=== PATIENT | male | born 1955 | race Caucasian/White ===

== ENCOUNTER 2016-11-29 15:11 | Inpatient (IN) | payer BC, OTHER ==
[~2016-11-29] VITALS: Ht 193 cm; Wt 73.7 kg
[2016-11-29] VITALS (401 sets, daily range): BP systolic 135–149; BP diastolic 62–68; PULSE 90–95; TEMP 97.5–97.9; O2SAT 48–100
[~2016-11-29 15:11] MED LIST: ALTACE 5MG5 MG PO; AMOXICILLIN875 MG PO; APIDRA SOLOS100 U/ML SC; ASPIRIN 81M81 MG/TA2 PO; ASPIRIN E.C. 8181 MG PO; AVELOX 400MG T400 MG PO; CLEOCIN HC150 MG/CAP PO; COREG 6.256.25 MG/TA PO; COREG6.25 MG PO; HUMALOG PEN100 U/ML SC; LANTUS SOLOS100 U/ML SC; LEVEMIR FLEXPEN; LEVEMIR100 U/ML SQ; NOVOLOG 100U100 U/M1 SQ; PROMETHAZINE V473 M2 PO; RAMIPRIL5 MG PO; SIMVASTATIN40 MG PO; ULTRAM 50MG TAB50 MG PO; ZOCOR 40MG40 MG PO; ZOFRAN 4MG T4 MG/TAB PO
[2016-11-29 15:56] LABS: HEMATOCRIT 43.8 % (42.0-52.0); HEMOGLOBIN 14.1 g/dl (13.5-18.0); MEAN CELL VOLUME 104 fl (80.0-100.0); MEAN CORPUSCULAR HEMOGLOBIN 34 pg (27.0-31.0); MEAN CORPUSCULAR HGB CONC 32 g/dl (33.0-37.0); MEAN PLATELET VOLUME 10.8 fl (7.4-10.4); PLATELET COUNT 319 K/mm3 (130-400); REDCELL DISTRIBUTION WIDTH-CV 12.6 % (11.5-14.5)
[2016-11-29 15:58] LABS: ADD PATHOLOGY DIFF REVIEW NO; WHITE BLOOD COUNT 28.5 K/mm3 (4.8-10.8)
[2016-11-29 16:04] LABS: ADJUSTED CALCIUM 8.8 mg/dL (8.4-10.2); ALBUMIN 4.3 gm/dL (3.5-5.0); BILIRUBIN,TOTAL 1.1 mg/dL (0.0-1.0); CREATININE, serum 2.12 mg/dL (0.66-1.25); POTASSIUM 5.4 mmol/L (3.4-5.0); TOTAL PROTEIN 7.5 gm/dL (6.4-8.2)
[2016-11-29] MEDS ORDERED: COREG 6.256.25 MG/TA PO (16:06)
[2016-11-29 16:22] LABS: ARTERIAL BLD GAS O2 SATURATION 97.4 % (92-100); ARTERIAL BLD GAS TCO2 CT 7.2; ARTERIAL BLOOD GAS HCO3 6.7 meq/L (22-26); OXYHEMOGLOBIN 96.2 %
[2016-11-29 16:23] LABS: ALLEN TEST YES; ALLENS TEST RESULT PASS; ATS? YES
[2016-11-29 16:30] LABS: MAGNESIUM 2.9 mg/dL (1.6-2.3); PHOSPHOROUS 8.7 mg/dL (2.5-4.5)
[2016-11-29 16:53] LABS: BAND 8 % (0-10); METAMYELOCYTE 2 % (0-0); MYELOCYTE 1 % (0-0); NEUTROPHILS 74 % (42.0-75.2); PLATELET ESTIMATE NORMAL (NORMAL)
[2016-11-29 16:56] LABS: ANISOCYTOSIS 1+; POLYCHROMASIA 1+; TOXIC GRANULATION PRESENT
[2016-11-29 16:57] LABS: TOTAL CELLS COUNTED 100
[2016-11-29 18:59] LABS: ANION GAP 28 mmol/L (7-16); BLOOD UREA NITROGEN 57 mg/dL (9-20); CALCIUM 8.5 mg/dL (8.4-10.2); CHLORIDE 91 mmol/L (98-107); CREATININE, serum 1.67 mg/dL (0.66-1.25); POTASSIUM 4.8 mmol/L (3.4-5.0); SODIUM 130 mmol/L (137-145)
[2016-11-29 19:13] LABS: CARBON DIOXIDE 11 mmol/L (22-30); GLUCOSE > 625 mg/dL (74-106)
[2016-11-29 19:14] LABS: TROPONIN-I 0.058 ng/mL (0.000-0.034)
[2016-11-29 20:42] LABS: PH 5 (5-8); SQUAMOUS EPITHELIAL 0-2 /hpf; URINE APPEARANCE Clear; URINE BACTERIA Rare /hpf; URINE BILIRUBIN Negative (NEGATIVE); URINE BLOOD 1+ (NEGATIVE); URINE COLOR Straw; URINE GLUCOSE 3+ (NEGATIVE); URINE KETONE 2+ (NEGATIVE); URINE RBC 0-2 /hpf; URINE UROBILINOGEN Negative (NEGATIVE); URINE WBC 0-2 /hpf
[2016-11-29 20:44] LABS: AMPHETAMINE URINE NEGATIVE; BARBITURATES URINE NEGATIVE; BENZODIAZEPINES URINE NEGATIVE; BUPRENORPHINE URINE NEGATIVE; METHADONE URINE NEGATIVE; OPIATES URINE NEGATIVE; OXYCODONE URINE NEGATIVE; PHENCYCLIDINE URINE NEGATIVE; PROPOXYPHENE URINE NEGATIVE; THC CANNABINOIDS URINE NEGATIVE
[2016-11-29 21:33] LABS: CALCIUM 7.8 mg/dL (8.4-10.2); CREATININE, serum 1.21 mg/dL (0.66-1.25); POTASSIUM 4.9 mmol/L (3.4-5.0)
[2016-11-30] VITALS (780 sets, daily range): BP systolic 114–139; BP diastolic 61–75; PULSE 70–87; TEMP 97.7–99.8; O2SAT 79–100
[2016-11-30 00:14] LABS: CALCIUM 7.8 mg/dL (8.4-10.2); CREATININE, serum 1.01 mg/dL (0.66-1.25)
[2016-11-30 05:47] LABS: BASO % 0.1 % (0.0-2.0); GRAN % 80.8 % (42.2-75.2); HEMOGLOBIN 12.3 g/dl (13.5-18.0); LYMPH # 2.1 (1.2-3.4); MEAN CORPUSCULAR HEMOGLOBIN 33 pg (27.0-31.0); MEAN CORPUSCULAR HGB CONC 35 g/dl (33.0-37.0); MEAN PLATELET VOLUME 10.2 fl (7.4-10.4); MONO # 1.7 (0.1-0.6); MONO % 8.3 % (1.7-9.3); PLATELET COUNT 272 K/mm3 (130-400); REDCELL DISTRIBUTION WIDTH-CV 11.9 % (11.5-14.5)
[2016-11-30 05:50] LABS: HEMATOCRIT 35.1 % (42.0-52.0); MEAN CELL VOLUME 95 fl (80.0-100.0)
[2016-11-30 05:57] LABS: CREATININE, serum 0.79 mg/dL (0.66-1.25); POTASSIUM 3.7 mmol/L (3.4-5.0)
[2016-11-30 10:12] LABS: CALCIUM 8.3 mg/dL (8.4-10.2); CREATININE, serum 0.74 mg/dL (0.66-1.25); POTASSIUM 3.9 mmol/L (3.4-5.0)
[2016-11-30 13:46] LABS: CALCIUM 8.5 mg/dL (8.4-10.2); CREATININE, serum 0.76 mg/dL (0.66-1.25); POTASSIUM 3.9 mmol/L (3.4-5.0)
[2016-12-01] VITALS (10 sets, daily range): BP systolic 121–152; BP diastolic 50–67; PULSE 62–82; TEMP 97.8–99.1
[2016-12-01 14:31] LABS: BASO % 0.3 % (0.0-2.0); GRAN # 8.6 (1.4-6.5); GRAN % 81.5 % (42.2-75.2); HEMATOCRIT 38.3 % (42.0-52.0); HEMOGLOBIN 13.2 g/dl (13.5-18.0); LYMPH # 0.9 (1.2-3.4); LYMPH % 8.8 % (20.0-51.0); MEAN CELL VOLUME 98 fl (80.0-100.0); MEAN CORPUSCULAR HEMOGLOBIN 34 pg (27.0-31.0); MEAN CORPUSCULAR HGB CONC 35 g/dl (33.0-37.0); MONO # 0.9 (0.1-0.6); PLATELET COUNT 250 K/mm3 (130-400); RED BLOOD COUNT 3.91 M/mm3 (4.20-5.60); REDCELL DISTRIBUTION WIDTH-CV 12.7 % (11.5-14.5); WHITE BLOOD COUNT 10.5 K/mm3 (4.8-10.8)
[2016-12-02 02:37] VITALS: BP 125/62; PULSE 62; TEMP 98.7
[2016-12-02 06:46] LABS: BASO % 0.4 % (0.0-2.0); EOS # 0.1 (0.0-0.7); EOS % 1.1 % (0-4.0); GRAN # 6.2 (1.4-6.5); GRAN % 59.2 % (42.2-75.2); LYMPH # 2.8 (1.2-3.4); LYMPH % 27.1 % (20.0-51.0); MEAN CELL VOLUME 98 fl (80.0-100.0); MEAN CORPUSCULAR HEMOGLOBIN 33 pg (27.0-31.0); MEAN CORPUSCULAR HGB CONC 34 g/dl (33.0-37.0); MEAN PLATELET VOLUME 10.8 fl (7.4-10.4); MONO # 1.2 (0.1-0.6); MONO % 11.7 % (1.7-9.3); PLATELET COUNT 238 K/mm3 (130-400); RED BLOOD COUNT 3.89 M/mm3 (4.20-5.60); REDCELL DISTRIBUTION WIDTH-CV 12.6 % (11.5-14.5); WHITE BLOOD COUNT 10.5 K/mm3 (4.8-10.8)
[2016-12-02 07:01] LABS: CALCIUM 8.5 mg/dL (8.4-10.2); CREATININE, serum 0.62 mg/dL (0.66-1.25); POTASSIUM 3.5 mmol/L (3.4-5.0)
[2016-12-02 07:35] VITALS: BP 131/56; PULSE 68; TEMP 98
[2016-12-02] MEDS ORDERED: LEVEMIR FLEX100 U/ML SQ (10:00)
[2016-12-02] MEDS ORDERED: CLEOCIN HC150 MG/CAP PO (12:00)
== END 2016-12-02 12:02 | disposition home or self-care (01) | DRG 637 ==
LOC: COL.ER 15:11 → ICU 16:20 → MEDICAL 16:20
PROVIDERS: Family Medicine; Internal Medicine; Nurse Practitioner Family
DX: E10.10 Type 1 diabetes mellitus with ketoacidosis without coma (principal); I21.4 Non-ST elevation (NSTEMI) myocardial infarction; A41.9 Sepsis, unspecified organism; N17.9 Acute kidney failure, unspecified; E87.1 Hypo-osmolality and hyponatremia; Z79.4 Long term (current) use of insulin; I10 Essential (primary) hypertension; F17.210 Nicotine dependence, cigarettes, uncomplicated; K04.7 Periapical abscess without sinus
CPT/HCPCS: 99223-AI; 99233-AI; 99239; A9502; J1644; J1815; J2785; J7030